=== PATIENT | male | born 2000 | race Caucasian/White ===

== ENCOUNTER 2021-02-03 05:37 | Emergency (ER) | payer BC, SELFPAY ==
--- NOTE | ~2021-02-03 | US_ITS ---
EXAMINATION: US scrotum doppler DATE: 02/03/2021 07:26 INDICATION: Left testicular pain TECHNIQUE: Testicular sonogram utilizing grayscale and Doppler COMPARISON: None. FINDINGS: The right testis measures 5.1 x 2.2 x 3.2 cm. The left testis measures 5.1 x 3.1 x 2.9 cm. Symmetric normal grayscale appearance to both testes. There are few bilateral tiny echogenic calcifications in both kidneys. There is normal vascular flow to both testes. The right epididymis is normal with angel l vascular flow. The left epididymis is normal with normal vascular flow. There is no varicocele or h ydrocele. IMPRESSION: 1. Bilateral testicular microlithiasis. Otherwise normal scrotal ultrasound. Reviewed, dictated and finalized at location A.
[2021-02-03 05:43] VITALS: BP 120/58; PULSE 67; RESP 16; TEMP 36.4; O2SAT 97
--- NOTE | 2021-02-03 06:11 | ED.GENADULT ---
HPI - General Adult General Chief complaint: Urogenital-Male <Giovani Doran MD - Last Filed: 02/03/21 06:15> Stated complaint: testicular pain <Giovani Doran MD - Last Filed: 02/03/21 06:15> Time Seen by Provider: 02/03/21 06:01 <Giovani Doran MD - Last Filed: 02/03/21 06:15> History of Present Illness HPI narrative: Patient is 20-year-old gentleman who presents the emergency department with chief complaint of left testicle pain. Patient states that for some time he has had discomfort in his left testicle but states recently it got worse patient states that it feels as though his testicle rotates patient denies urinary symptoms denies discharge. Patient states that he has seen a urologist in the past and has had an ultrasound. Patient states he had no new trauma to the area <Giovani Doran MD - Last Filed: 02/03/21 06:15> Related Data Home medications: Home Medications Medication Instructions Recorded Confirmed No Home Medications 02/03/21 02/03/21 <Giovani Doran MD - Last Filed: 02/03/21 06:15> Allergies/adverse reactions: Allergies Allergy/AdvReac Type Severity Reaction Status Date / Time No Known Allergies Allergy Verified 02/03/21 05:50 <Giovani Doran MD - Last Filed: 02/03/21 06:15> Review of Systems Review of Systems: Narrative: A 10 system review of systems was completed on the patient and is negative except for what is stated in the HPI. Nursing and ancillary documentation was reviewed. <Giovani Doran MD - Last Filed: 02/03/21 06:15> Exam Narrative: Exam Narrative: GENERAL: Well-appearing, well-nourished, and in no acute distress. HEAD: Normocephalic, atraumatic. EYES: PERRLA and EOMI. ENT: Nares clear, no rhinorrhea or epistaxis. Mucous membranes moist. NECK: Supple. CHEST: Clear to auscultation. No respiratory distress. HEART: Regular rate and rhythm. No murmur heard. Normal peripheral pulses. ABDOMEN: Soft, nontender, nondistended, normal active bowel sounds. EXTREMITIES: Normal range of motion. No edema. : Patient has normal external genitalia with descended testis patient has tenderness to palpation of the left posterior aspect of the left testicle. There is no erythema there is no fluctuance SKIN: Warm, dry, no rash. NEURO: No focal deficits. Alert and oriented x3. PSYCH: Normal mood and affect. <Giovani Doran MD - Last Filed: 02/03/21 06:15> Course Vital Signs Vital signs: Vital Signs Temperature 36.4 C L 02/03/21 05:43 Pulse Rate 67 02/03/21 05:43 Respiratory Rate 16 02/03/21 05:43 Blood Pressure 120/58 L 02/03/21 05:43 Pulse Oximetry 97 02/03/21 05:43 Temperature 36.4 C L 02/03/21 05:43 Pulse Rate 63 02/03/21 10:00 Respiratory Rate 16 02/03/21 10:00 Blood Pressure 115/79 02/03/21 10:00 Pulse Oximetry 97 02/03/21 10:00 <Giovani Doran MD - Last Filed: 02/03/21 06:15> Vital Signs Temperature 36.4 C L 02/03/21 05:43 Pulse Rate 67 02/03/21 05:43 Respiratory Rate 16 02/03/21 05:43 Blood Pressure 120/58 L 02/03/21 05:43 Pulse Oximetry 97 02/03/21 05:43 Temperature 36.4 C L 02/03/21 05:43 Pulse Rate 63 02/03/21 10:00 Respiratory Rate 16 02/03/21 10:00 Blood Pressure 115/79 02/03/21 10:00 Pulse Oximetry 97 02/03/21 10:00 <Magdalene Bales MD - Last Filed: 02/03/21 10:18> Medical Decision Making Vital Signs Vital Signs: Vital Signs Temperature 36.4 C L 02/03/21 05:43 Pulse Rate 67 02/03/21 05:43 Respiratory Rate 16 02/03/21 05:43 Blood Pressure 120/58 L 02/03/21 05:43 Pulse Oximetry 97 02/03/21 05:43 Temperature 36.4 C L 02/03/21 05:43 Pulse Rate 63 02/03/21 10:00 Respiratory Rate 16 02/03/21 10:00 Blood Pressure 115/79 02/03/21 10:00 Pulse Oximetry 97 02/03/21 10:00 <Giovani Doran MD - Last Filed: 02/03
--- NOTE | 2021-02-03 06:14 | PC.NURSE ---
Contacted radiology to call US in to r/o testicular torsion.
[2021-02-03 06:46] VITALS: BP 108/58; PULSE 63; RESP 18; O2SAT 98
[2021-02-03 06:52] LABS: Add Urine Microscopic? YES; Appearance Urine Clear (Clear); Bilirubin Urine Negative (Negative); Blood Urine Negative (Negative); Color Urine Yellow (Yellow); Glucose Urine UA Negative (Negative); Ketones Urine Negative (Negative); Leukocyte Esterase Ur Negative LEU/UL (Negative); Mucus Urine Rare /lpf; Nitrate Urine Negative (Negative); Protein Urine Negative (Negative); RBC Urine 0-2 /hpf (0-2); Specific Grav Ur 1.018 (1.001-1.035); WBC Urine 0-3 /hpf
--- NOTE | 2021-02-03 07:25 | PC.NURSE ---
Assumed care of pt at this time, report taken from Maame WEBER. Pt in US at this time, mother at bedside.
[2021-02-03 10:00] VITALS: BP 115/79; PULSE 63; RESP 16; O2SAT 97
[2021-02-03 10:25] VITALS: BP 110/67; PULSE 72; RESP 14; O2SAT 98
== END 2021-02-03 10:26 | disposition home or self-care (01) ==
PROVIDERS: Emergency Medicine; Emergency Provider Emergency Medicine
DX: N50.89 Other specified disorders of the male genital organs (principal)
CPT/HCPCS: 76870; 81001; 87491; 87591; 93976; 99284

== ENCOUNTER 2021-02-03 18:54 | Emergency (ER) | payer BC, SELFPAY ==
[2021-02-03 19:04] VITALS: BP 129/83; PULSE 96; RESP 20; TEMP 37.1; O2SAT 96
--- NOTE | 2021-02-03 19:29 | ED.GENADULT ---
HPI - General Adult General Chief complaint: Unspecified Stated complaint: testicular pain Time Seen by Provider: 02/03/21 19:29 History of Present Illness HPI narrative: previously healthy 18 yo male presents to the ED for testicle pain. He reports that he has been having issues with his testicles for months. He has bilateral pain and feels like they are twisting [id number]. Some times it feels like they are going to retract into the inguinal canal. When it initially started he was seen at an ED in [place]. He had a negative US and followed up with a urologist the following day. He beleives that the urologist told him that his pain was actually related to his lower back. He saw a chiropractor. Unclear if this helped. 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 It is not clear what he thinks will happen if he lets go. He was seen here this morning and had a negative ultrasound, but still has concerns. Related Data Home Medications Medication Instructions Recorded Confirmed No Home Medications 02/03/21 02/03/21 Allergies Allergy/AdvReac Type Severity Reaction Status Date / Time No Known Allergies Allergy Verified 02/03/21 05:50 Review of Systems Review of Systems: All systems reviewed & are unremarkable except as noted in HPI and below Constitutional: Constitutional: Reports difficulty sleeping Eyes: Eyes: Reports no additional eye complaints ENT: Reports system reviewed and no additional complaints, except as documented Cardiovascular: Cardiovascular: Reports no additional cardiovascular complaints Respiratory: Respiratory: Reports no additional respiratory complaints Gastrointestinal: Gastrointestinal: Denies abdominal pain, Denies diarrhea, Denies nausea and Denies vomiting Genitourinary: Genitourinary: Denies hematuria, Denies dysuria, Denies penile discharge and Denies testicular mass Musculoskeletal: Musculoskeletal: Denies back pain Neurologic: Reports system reviewed and no additional complaints, except as documented [facility] Social History Social History Gender identity (if verbalized by the patient): Male Exam Const: General: healthy appearing, no acute distress and alert Orientation/consciousness: patient oriented x3 HENMT: Head: normal to inspection Chest: Chest palpation & inspection: no tenderness Resp: Effort & Inspection: normal respiratory effort Auscultation: clear to auscultation bilaterally, no rales, no rhonchi and no wheezes Cardio: Jugular venous distension: no JVD Rate: regular rate Rhythm: regular rhythm Heart sounds: no murmurs GI: Inspection: non-distended GI Palp: Yes Soft to palpation and No Tenderness to palpation present (GI) : Penis: Yes normal penis Scrotum: scrotum normal Testes: testicular lie normal, no testicular mass, no testicular swelling, testicular tenderness and normal testicular lie Skin: General skin exam: normal color Neuro: General: patient oriented x3 and moves all extremities Speech: normal speech Extrem: General: no edema Psych: Appearance: well kempt Affect: normal affect Course Vital Signs Vital signs: Vital Signs Temperature 37.1 C 02/03/21 19:04 Pulse Rate 96 02/03/21 19:04 Respiratory Rate 20 02/03/21 19:04 Blood Pressure 129/83 02/03/21 19:04 Pulse Oximetry 96 02/03/21 19:04 Temperature 37.1 C 02/03/21 19:04 Pulse Rate 90 02/03/21 20:49 Respiratory Rate 18 02/03/21 20:49 Blood Pressure 119/75 02/03/21 20:49 Pulse Oximetry 99 02/03/21 20:49 Medical Decision Making MDM Narrative Medical decision making narrative: Case discussed in detail with Dr. Low. He does not feel that there is anything of urgent concern. He is not recommending any further testing or specific treatment at this time. They would be happy to see him in clinic this wee
[2021-02-03 20:49] VITALS: BP 119/75; PULSE 90; RESP 18; O2SAT 99
== END 2021-02-03 20:50 | disposition home or self-care (01) ==
PROVIDERS: Emergency Provider Emergency Medicine
DX: N50.812 Left testicular pain (principal); N50.811 Right testicular pain
CPT/HCPCS: 99281